=== PATIENT | female | born 1960 | race Caucasian/White ===

== ENCOUNTER 2017-01-12 06:04 | Inpatient (IN) ==
[2017-01-12] MEDS ORDERED: METOPROLOL TARTRATE 5 MG/5 ML VIAL IV ONE (06:15)
[2017-01-12] MEDS ORDERED: NITROGLYCERIN 2% OINT 1 INCH/GM PACK TOP ONE (06:16)
[2017-01-12] MEDS ORDERED: NITROGLYCERIN 2% OINT 1 INCH/GM PACK TOP STA (06:18)
[2017-01-12] MEDS ORDERED: MORPHINE 2 MG/1 ML SYRINGE IV STA (06:19)
[2017-01-12] MEDS ORDERED: ONDANSETRON 4 MG/2 ML VIAL IV STA (06:19)
[2017-01-12] MEDS ORDERED: TIROFIBAN IV ONE (06:24)
[2017-01-12] MEDS ORDERED: TIROFIBAN 5,000 MCG/100 ML PREMIX IV ONE (06:29)
[2017-01-12] MEDS ORDERED: MORPHINE 2 MG/1 ML SYRINGE ONE (06:29)
[2017-01-12] MEDS ORDERED: ONDANSETRON 4 MG/2 ML VIAL ONE (06:29)
[2017-01-12] MEDS ORDERED: NITROGLYCERIN DRIP 50 MG/250 ML BOTTLE IV ONE (06:30)
[2017-01-12] MEDS ORDERED: METOPROLOL TARTRATE 5 MG/5 ML VIAL IV SCH (06:30)
--- NOTE | 2017-01-12 06:34 | Emergency Department Note ---
Jamar Mccormick Brooke, am scribing for, and in the presence of, Jose Bose MD 06:19 . Lidya Mccormick James D, MD, personally performed the services described in this documentation, ascribed by Christine Roldan in my presence, and it is both accurate and complete 630 . Arrival - Arrival Stated Complaint: CHEST PAIN Limitations: No Limitations Source: Patient, EMS, RN Notes Reviewed Time Seen by Provider: 01/12/17 06:12 - History of Present Illness HPI Narrative: Patient is a 56 year old female brought into the ED by EMS with c/o chest pain. Patient says, on Thursday, she started having pain in the lower left arm that was intermittent. She says on Thursday, she woke up nauseated but never could vomit. She even tried to induce vomiting but was never successful. Patient says the left arm pain the went up into the upper arm and into her neck and chest. Patient says she did get diaphoretic and short of breath with the pain. Patient says the pain woke up up, around 0200, this morning. She was given Morphine in ambulance and says her chest pain is better but her left arm still hurts. Patient does not have a history of heart problems or any other known medical problems. Patient quit smoking about 12 years ago. Onset (ago): day(s) (3`) Consistency: intermittent Allergies/Adverse Reactions: Allergies Allergy/AdvReac Type Severity Reaction Status Date / Time codeine Allergy Nausea Verified 01/12/17 06:24 fosphenytoin [From Cerebyx] Allergy ITCHING Verified 01/12/17 06:24 Penicillins Allergy Swelling Verified 01/12/17 06:24 of Lip/Tongue/Throat Review of System - Review of System 12 point system: reviewed and no additional remarkable complaints except as stated - Review of System Constitutional: Present: diaphoresis. Absent: fever Respiratory: Present: other (shortness of breath). Absent: respiratory distress Cardiovascular: Present: chest pain, dyspnea on exertion. Absent: palpitations Gastrointestinal: Present: nausea Musculoskeletal: Present: arm pain (left), neck pain Skin: Absent: rash Exam Vital Signs: Vital Signs Temperature 97.7 F 01/12/17 06:12 Pulse Rate 115 H 01/12/17 06:12 Respiratory Rate 20 01/12/17 06:12 Blood Pressure 203/113 01/12/17 06:12 O2 Sat by Pulse Oximetry 95 01/12/17 06:12 GENERAL: This is a well-nourished well-developed white female in no apparent distress. VITAL SIGNS: Reviewed HEENT: Head is atraumatic and normocephalic. Pupils are equal round react to light. Extraocular movements are intact. Oropharynx is benign with moist mucous membranes. NECK: Neck is soft and supple without tenderness. There are no masses. There is no lymphadenopathy. LUNGS: Lungs are clear to auscultation. Chest rises symmetrically. There is no chest wall tenderness. CV: Heart is rapid rate regular rhythm without murmurs rubs or gallops. ABDOMEN: Abdomen is soft, nontender to palpation. There are no abdominal abnormal masses palpated. There is no organomegaly. Bowel sounds are present and active. SKIN: Skin is warm and dry. No rash. EXTREMITIES: Patient has full range of motion without tenderness. There is no pedal edema. NEUROLOGIC: Awake alert and oriented 4. Cranial nerves II through XII are grossly intact. Motor is 5 over 5 in all extremities bilaterally. Deep tendon reflexes are 2+ and bilaterally equal. Course Course Narrative: Patient was given IV Lopressor, IV Aggrastat, IV nitroglycerin, morphine, and Zofran in the emergency department. Prior to transfer from [facility] she had been given aspirin and Lovenox along with Lopressor. She was not adequately beta blocked from her previous Lopressor dose. Patient was not pain-free upon arrival in the emergency department. She continued to have neck and left arm pain. - Consultations Consultation #1: Discussed with Dr. Caballero. Patient will be taken to the [facility] for PCI. Time: 06:32 Results - Labs Lab Results: I have reviewed the patients labs Labs: Lab performed at [facility] and reviewed by me: Troponin 14.3 Chemistry: Sodium 139, potassium 4.2, chloride 100, CO2 30, BUN 9, creatinine 1.5, glucose 256 CPK 648, MMB 39.3, myoglobin 107, magnesium 1.0 PT 10.0, INR 0.93 - EKG EKG results: interpreted by ERMD - Impressions EKG: Sinus tachycardia with a rate of 121, T-wave inversion in V2 and V3 consistent with anterior septal ischemia, normal axis. - Diagnostic Findings Procedure: Chest x-ray: image reviewed by me (No infiltrates, no pleural effusions per) Critical Care Time Critical Care Time: No Disposition Clinical Impression: Non-ST elevation [place] (NSTEMI), Diabetes mellitus, Essential hypertension Case discussed with: patient Disposition: Still a Patient Condition: Critical Time of Disposition: 06:34
[2017-01-12] MEDS ORDERED: HYDROmorphone 2 MG/1 ML VIAL ONE (06:43)
[2017-01-12] MEDS ORDERED: LIDOCAINE 1% 20 ML VIAL ONE (06:43)
[2017-01-12] MEDS ORDERED: MIDAZOLAM 2 MG/2 ML VIAL ONE (06:43)
[2017-01-12] MEDS: NITROGLYCERIN DRIP 50 MG/250 ML BOTTLE IV SCH (07:05)
[2017-01-12] MEDS: TIROFIBAN 5,000 MCG/100 ML PREMIX IV SCH ×3 (07:05→16:56)
[2017-01-12] MEDS ORDERED: TICAGRELOR 90 MG TABLET ONE (07:25)
--- NOTE | 2017-01-12 07:54 | Cardiac Catheterization ---
Date of Procedure:: 01/12/17 Post-op diagnosis: same Procedure: Procedure performed: 1. Coronary angiography 2. Angioplasty and stenting of mid LAD disease with drug-eluting stent (3.5 x 15 [place]) 3. Right femoral arteriotomy closed with Angio-Seal device Brief clinical summary: Ms. Toribio is a 56-year-old with intermittent chest pains for over 48 hours and continuous chest pain with elevated troponin starting at 2 AM this morning. Description of procedure: After obtaining informed consent, the right groin was prepped and draped in the usual sterile fashion. Next a short 6 [place] sheath was placed in the right femoral artery using a modified Seldinger technique, after the patient received IV sedation and local anesthetic. Next a JL4 catheter was advanced over a guidewire under fluoroscopic guidance, and was engaged to the left coronary artery after which angiography was performed in multiple views. This was then removed over a wire, and a JR4 catheter was advanced in similar fashion, and was engaged to the right coronary artery after which angiography was performed in multiple views. Percutaneous coronary mention was then performed as described below. An angiogram of the sheath showed that it was inserted in the right common femoral artery in a vessel suitable for closure. Hemostasis was obtained with Angio-Seal device with slight continuous "oozing" from the site with golf ball sized hematoma. This was controlled with manual pressure. She had normal pedal pulses at the end the procedure.. The patient was transferred from the supervisor laboratory animal facility in good condition without complication. Percutaneous coronary mention: The patient received aspirin Lovenox and Aggrastat in the emergency room. She had severe hypertension well over 200 mmHg in the ER which came down to 170 here and eventually to the 130s systolic on IV nitroglycerin. I stopped her Aggrastat given her history of "brain bleed " with multiple kathya holes and craniotomy in the past. Advanced and EBU 3.5 guiding catheter which engaged the left coronary artery provided reasonable support. A pro-water wire was advanced to the distal LAD with some difficulty has had taken not to reshape the wire with a larger band. I then advanced a 3.0 x 12 balloon across the area of disease in the dilated to nominal pressures. The balloon was then removed and a 3.5 x 15 [place] stent was advanced crosshair disease and deployed at nominal pressures. The stent appear to be well sized there was a discrete filling defect at the distal edge which may be related to the balloon still being in the stent. I then advanced the balloon several millimeters dilated the distal portion of the lesion for 1 minute at about 4 marivel. There was a good angiographic result with IQRA-3 flow being noted before and after the procedure. Coronary angiography: Left main coronary is normal development free of disease. Left anterior CRE is at least average in caliber wraps around the apex. Gives off a large early diagonal which is the only significantly sized diagonal branch. After the first septal there is a critical 99% area stenosis which is fairly discrete. Otherwise her only moderate irregularities. The circumflex system gives off a ramus branch which is slightly thinner than average in caliber. There is a large than average obtuse marginal branch which is the only branch. The right coronary is a dominant vessel is of average caliber. Gives off an average caliber PDA and posterior lateral. There are at most minimal irregularities. Impression: 1. Right dominant system 2. Single-vessel coronary artery disease with 99% mid LAD stenosis which is discrete 3. Status post angioplasty stenting of mid LAD disease with 3.5 x 15 [place] stent with good results Recommendation discussion: Believe achieved very good result cart distending Ms. Toribio's critical culprit lesion for her non-STEMI with ongoing chest pain. Her chest pain resolved during the procedure. We will watch her closely in the CCU. Sinus tachycardia still noted that heart rate about 110 bpm. We will start her back on her beta- tavo therapy and at high intensity statin. Anesthesia: minimal conscious sedation Surgeon / Physician: Channing Caballero Therapeutic Massage Technician: other Estimated blood loss: minimal Specimens: none sent Condition: stable Disposition: ICU/CCU - Medications / Follow-up
[2017-01-12] MEDS ORDERED: SODIUM CHLORIDE 0.45% 1,000 ML IV SCH (08:00)
--- NOTE | 2017-01-12 08:01 | EKG Report ---
Stationary ECG Study [facility] ER Test Date: 01/12/2017 6:14:20 AM Pat Name: PAT VENEGAS Department: Room: 122 Gender: F Collision Center Manager: : 1960 Requested by: Jose Melo Order Number: [id number] Reading MD: BILL PARKER Intervals [place] Rate: 121 P: 71 VA: 123 QRS: 55 QRSD: 66 T: 91 QT: 387 QTc: 459 Interpretive Statements SINUS TACHYCARDIA at 121 bpm LOW QRS VOLTAGE IN PRECORDIAL LEADS ST DEVIATION AND MARKED T-WAVE ABNORMALITY, CONSIDER ANTEROLATERAL ISCHEMIA Electronically Signed On 01-12-17 15:03:00 CDT by BILL PARKER [email or web address]
--- NOTE | 2017-01-12 08:07 | Cardiology History & Physical ---
Assessment and Plan (1) Non-ST elevation [place] (NSTEMI) Status: Acute Assessment and plan: 1. 56-year-old remote smoker with hypertension, NIDDM, intermittent chest pain for over 48 hours who presented with continuous chest pain since 2 AM with troponin of 14, confirming non-STEMI with ongoing chest pain. 2. History of bowel obstruction with colostomy since about 2010 (Dr. Cabrales) 3. History of craniotomy and bur holes 2 approximately 2013 for "brain bleed" 4. Perform urgent heart catheterization to define her coronary anatomy with intervention as appropriate. I discussed with the patient the risks and benefits of heart catheterization including but not limited to: , stroke, heart attack, vascular damage, reaction to medicine or dye, bleeding requiring blood transfusion, failure of the procedure, and the possible need for planned or emergency surgery. I have answered all the patient's questions regarding the procedure, and the patient is agreeable to proceed. Current Visit: Yes (2) Diabetes mellitus Status: Acute Current Visit: Yes (3) Essential hypertension Status: Acute Current Visit: Yes History of Present Illness Chief complaint: cp History of present illness: Ms. Toribio is a 56 year old female who reports having intermittent episodes of chest pain "off and on" since January 09 lasting up to a couple hours. She had minimal chest discomfort last night when she went to bed. However she woke up at 2 AM with severe crushing chest pain radiating to the left side. She is found to have elevated troponin of 14 in [place], and was transferred here for further care. I was asked to see her urgently with transfer to the [place] Machine [facility] to expedite her intervention. She was still having chest discomfort when I met her in the lab. She still had moderate shortness of breath although both had improved a bit. She reported having bur holes on 2 occasions and craniotomy for "brain bleed" in about 2013. Therefore I stopped her Aggrastat. She denies any previous cardiac history. 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 Allergies Allergy/AdvReac Type Severity Reaction Status Date / Time codeine Allergy Nausea Verified 01/12/17 06:24 fosphenytoin [From Cerebyx] Allergy ITCHING Verified 01/12/17 06:24 Penicillins Allergy Swelling Verified 01/12/17 06:24 of Lip/Tongue/Throat Medical,Surgical,& Family Hx - Medical History Cardio: History of: Hypertension Neurology: History of: Cerebral Hemorrhage Endocrine: History of: Diabetes Mellitus (NIDDM) Gastrointestinal: History of: Bowel Obstruction - Surgical History Abdominal Surgeries: Surgical HX of: Abdominal Surgery (colostomy) - Social History Smoking Status: Never smoker Frequency of Alcohol Use: None Type of Drug Use: None Cardiology Physical Exam - Constitutional Vitals: Vital Signs Temp Pulse Resp BP Pulse Ox 97.7 F 115 H 20 203/113 95 01/12/17 06:12 01/12/17 06:15 01/12/17 06:15 01/12/17 06:12 01/12/17 06:12 Intake and Output 01/11/17 01/12/17 01/12/17 23:59 07:59 15:59 Intake Total 50 / 50 Balance 50 / 50 Intake: IV 50 / 50 AGGRASTAT 5,000 mcg In 50 / 50 100 ml @ 0.15 MCG/KG/MIN 18.37 mls/hr IV .Q5H27M [facility] Rx#:[id number] Other: Weight 106.594 kg Patient Weight 01/12/17 23:59 Weight 106.594 kg General appearance: mild distress, over weight - Head Head exam: Present: normal inspection, normocephalic, atraumatic, other (h/o [place] holes) - Respiratory Respiratory exam: Present: clear to auscultation bilaterally - Cardiovascular Cardiovascular exam: Present: tachycardia. Absent: diastolic murmur, systolic murmur - GI/Abdominal GI/Abdominal exam: Present: soft. Absent: tenderness - Extremities Exam Extremities exam: Present: other (Normal pedal pulses). Absent: edema - Psychiatric Psychiatric exam: Present: anxious Result/EKG - Labs Labs: Laboratory Results - last 24 hr 01/12/17 06:29 Troponin I 13.300 H - EKG EKG results: sinus rhythm
--- NOTE | 2017-01-12 08:31 | EKG Report ---
Stationary ECG Study [facility] Test Date: 01/12/2017 8:28:29 AM Pat Name: PAT VENEGAS Department: Room: 122 Gender: F Patrol Supervisor: Benoit : 1960 Requested by: Channing Hannah Order Number: [id number] Reading MD: VIVI RODRIGUEZ Intervals [place] Rate: 105 P: 62 DE: 160 QRS: 5 QRSD: 75 T: 128 QT: 383 QTc: 444 Interpretive Statements SINUS TACHYCARDIA T WAVE ABNORMALITY, POSSIBLE ANTEROLATERAL ISCHEMIA Electronically Signed On 01-12-17 15:07:23 CDT by VIVI RODRIGUEZ [email or web address]
[2017-01-12] MEDS: CARVEDILOL 3.125 MG TABLET PO SCH ×2 (09:21→21:52)
[2017-01-12] MEDS: ATORVASTATIN 40 MG TABLET PO SCH (09:21)
--- NOTE | 2017-01-12 11:29 | EKG Report ---
Stationary ECG Study [facility] Test Date: 01/12/2017 11:29:18 AM Pat Name: PAT VENEGAS Department: Room: 122 Gender: F Senior Attorney: : 1960 Requested by: Channing Hannah Order Number: [id number] Reading MD: VIVI RODRIGUEZ Intervals [place] Rate: 101 P: 55 ID: [id number] QRS: 17 QRSD: 78 T: 125 QT: 387 QTc: 445 Interpretive Statements SINUS TACHYCARDIA LOW QRS VOLTAGE IN PRECORDIAL LEADS MARKED T-WAVE ABNORMALITY, CONSIDER ANTEROLATERAL ISCHEMIA Electronically Signed On 01-12-17 15:09:25 CDT by VIVI RODRIGUEZ [email or web address]
[2017-01-12] MEDS: INSULIN REGULAR 100 UNIT/ML SUBCUT SCH ×3 (12:11→21:51)
--- NOTE | 2017-01-12 14:48 | EKG Report ---
Stationary ECG Study [facility] Test Date: 01/12/2017 2:49:06 PM Pat Name: PAT VENEGAS Department: Room: 122 Gender: F Sheet Layer: CRISPIN : 1960 Requested by: Channing Hannah Order Number: [id number] Reading MD: VIVI RODRIGUEZ Intervals [place] Rate: 99 P: 43 [place]: 128 QRS: 21 QRSD: 82 T: 143 QT: 397 QTc: 453 Interpretive Statements SINUS RHYTHM LOW QRS VOLTAGE IN PRECORDIAL LEADS ST DEVIATION AND MARKED T-WAVE ABNORMALITY, CONSIDER ANTEROLATERAL ISCHEMIA Electronically Signed On 01-12-17 15:11:49 CDT by VIVI RODRIGUEZ [id number]
[2017-01-12] MEDS ORDERED: GLUCAGON 1 MG VIAL IM PRN (15:56)
[2017-01-12] MEDS ORDERED: DEXTROSE 50% 25 GM/50 ML SYRINGE IV PRN (15:56)
[2017-01-12] MEDS: traMADol 50 MG TABLET PO SCH ×2 (16:51→21:52)
[2017-01-12] MEDS ORDERED: traMADol 50 MG TABLET PO SCH (17:00)
[2017-01-12] MEDS: TICAGRELOR 90 MG TABLET PO SCH (21:52)
[2017-01-13 05:33] LABS: Basophils % 0.3 % (0.0-0.8); Eosinophils # 0.1 10*3/uL (0.0-0.87); Eosinophils % 1.3 % (0.00-10.9); Hematocrit 35.9 VOL% (35.7-47.0); Immature Granulocytes % 0.6 %; Immature Granulocytes Absolute 0.04 #; Lymphocytes # 1.6 10*3/uL (1.4-4.0); Lymphocytes % 22.7 % (21.3-54.2); Mean Corpuscular HGB Conc 33.4 GM/DL (32-36); Mean Corpuscular Hemoglobin 27 PG (27-34); Mean Corpuscular Volume 81.4 FL (87-102); Mean Platelet Volume 10.9 FL (9.6-12.0); Monocytes # 0.7 10*3/uL (0.11-0.8); Monocytes % 9.8 % (1.7-12.7); Neutrophils # 4.6 10*3/uL (1.4-7.4); Neutrophils % 65.3 % (38.7-73.9); Platelet Count 218 T/CUMM (130-400); Red Blood Count 4.41 MC/CUMM (3.8-5.5); Red Cell Distribution Width 14.4 % (9.3-17.3)
[2017-01-13] MEDS: NITROGLYCERIN DRIP 50 MG/250 ML BOTTLE IV SCH (06:04)
[2017-01-13 06:07] LABS: Blood Urea Nitrogen 8 MG/DL (7-18); Calcium 8.4 MG/DL (8.5-10.1); Glucose 178 MG/DL (74-106); Osmolality,Calculated 271.1 MOS/KG (273-304); Potassium 3.5 MMOL/L (3.5-5.1); Sodium 135 MMOL/L (136-145)
--- NOTE | 2017-01-13 07:15 | EKG Report ---
Stationary ECG Study [facility] Test Date: 01/13/2017 7:15:39 AM Pat Name: PAT VENEGAS Department: Room: 122 Gender: F Collections Attorney: MARISOL : 1960 Requested by: Channing Hannah Order Number: [id number] Reading MD: VIVI RODRIGUEZ Intervals [place] Rate: 103 P: 70 [place]: 138 QRS: 63 QRSD: 76 T: 101 QT: 363 QTc: 423 Interpretive Statements SINUS TACHYCARDIA LOW QRS VOLTAGE IN PRECORDIAL LEADS MODERATE T-WAVE ABNORMALITY, CONSIDER ANTERIOR ISCHEMIA Electronically Signed On 01-13-17 09:36:58 CDT by VIVI RODRIGUEZ [email or web address]
[2017-01-13] MEDS: INSULIN REGULAR 100 UNIT/ML SUBCUT SCH ×4 (08:05→21:52)
[2017-01-13] MEDS: traMADol 50 MG TABLET PO SCH ×2 (08:06→20:53)
[2017-01-13] MEDS: ATORVASTATIN 40 MG TABLET PO SCH (08:06)
[2017-01-13] MEDS: TICAGRELOR 90 MG TABLET PO SCH ×2 (08:07→20:52)
[2017-01-13] MEDS: ASPIRIN CHEW 81 MG TABLET PO SCH (08:07)
[2017-01-13] MEDS: CARVEDILOL 6.25 MG TABLET PO SCH ×2 (08:07→20:52)
[2017-01-13] MEDS: LISINOPRIL 5 MG TABLET PO SCH ×2 (08:08→20:52)
--- NOTE | 2017-01-13 11:22 | Cardiology Progress Note ---
Dudley Mccormick April, RN, am scribing for, and in the presence of, Channing Caballero MD 11:22. Assessment and Plan - Time spent with patient Time spent with patient: Greater than 30 minutes (1) Non-ST elevation [place] (NSTEMI) Status: Acute Assessment and plan: I have examined and interviewed Ms. Toribio. I agree with above went add the following: Initial assessment and plan January 12, 2017: 1. 56-year-old remote smoker with hypertension, NIDDM, intermittent chest pain for over 48 hours who presented with continuous chest pain since 2 AM with troponin of 14, confirming non-STEMI with ongoing chest pain. 2. History of bowel obstruction with colostomy since about 2010 (Dr. Cabrales) 3. History of craniotomy and bur holes 2 approximately 2013 for "brain bleed" 4. Perform urgent heart catheterization to define her coronary anatomy with intervention as appropriate. Assessment and plan January 13, 2017: 1. Status post non-STEMI doing reasonably well clinically but still with some mild sinus tachycardia 2. Increase Coreg to 6.25 g twice daily and add low-dose lisinopril 5 g twice daily 3. Echocardiogram is pending 4. Transfer to telemetry Current Visit: Yes (2) Essential hypertension Status: Chronic Current Visit: Yes (3) Diabetes mellitus Status: Chronic Current Visit: Yes Cardiology - PN: Subj Interval history: Handcrew Foreman: New to Dr. Caballero PCP: Ruth Redman Summary: Ms. Toribio is a 56 year old female who reports having intermittent episodes of chest pain "off and on" since January 09 lasting up to a couple hours. She had minimal chest discomfort January 11 when she went to bed. However she woke up at 2 AM with severe crushing chest pain radiating to the left side. She is found to have elevated troponin of 14 in [facility], and was transferred to [facility] for further care. I was asked to see her urgently with transfer to the Financial Advisor Trainee to expedite her intervention. She was still having chest discomfort when I met her in the lab. She still had moderate shortness of breath although both had improved a bit. She reported having bur holes on 2 occasions and craniotomy for "brain bleed" in about 2013. Therefore I stopped her Aggrastat. She denies any previous cardiac history. 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 She underwent heart catheterization January 12 with the following findings: Impression: 1. Right dominant system 2. Single-vessel coronary artery disease with 99% mid LAD stenosis which is discrete 3. Status post angioplasty stenting of mid LAD disease with 3.5 x 15 [place] stent with good results January 13, 2017: Ms. Toribio is seen today in the cardiac care unit. She denies any chest pain this morning, but states she does have some tenderness in her chest area. She reports this morning she was short of breath, they have placed her on oxygen via nasal cannula and this is improved. O2 sat is currently 99%. She reports she has been up to the bathroom without difficulty. Right groin cath access site is soft and without evidence of bleeding or hematoma, no bruit detected. Her creatinine post cath is stable at 1.10. Her troponin has trended down some to 8.[address] currently shows sinus tachycardia with heart rate of 106. Current blood pressure 142/90. Lisinopril 5 mg twice daily has been added to her medical regimen. She is also on beta-tavo, statin, baby aspirin. She has been started on Brilinta 90 mg twice daily. We have discussed the importance of taking this medication without fail. Exam (Progress Note) - Constitutional Vitals: Period Temp Pulse Resp BP Sys/Lilly Pulse Ox Last 24 Hr 96.9 F-97.5 F 87-122 11-26 112-171/60-115 91-99 General appearance: no acute distress, over weight - Head Head exam: Present: other (History of [place] holes). Absent: abrasion, hematoma - Eye Eye exam: Absent: periorbital swelling, laceration to eyelids - Respiratory Respiratory exam: Present: clear to auscultation bilaterally, other (Oxygen in use via nasal cannula). Absent: accessory muscle use, chest wall tenderness - Cardiovascular Cardiovascular exam: Present: regular rate and rhythm, tachycardia. Absent: diastolic murmur, systolic murmur - GI/Abdominal GI/Abdominal exam: Present: normal bowel sounds, soft, other (Colostomy). Absent: distended, tenderness - Extremities Exam Extremities exam: Present: other (Right groin soft and without evidence of bleeding or hematoma). Absent: calf tenderness, edema - Neurological Exam Neurological exam: Present: alert, oriented X3 - Psychiatric Psychiatric exam: Present: normal affect, normal mood - Skin Skin exam: Present: warm, dry Result/EKG - Labs CBC & BMP: 01/13/17 05:07 01/13/17 05:07 Lab Results: I have reviewed the past 24 hour labs Labs: Laboratory Results - last 24 hr 01/12/17 01/12/17 01/12/17 10:57 11:13 13:57 WBC RBC Hgb Hct MCV MCH MCHC RDW Plt Count MPV Neut % (Auto) Lymph % (Auto) [place] % (Auto) Eos % (Auto) Baso % (Auto) Neut # (Auto) Lymph # (Auto) [place] # (Auto) Eos # (Auto) Baso # (Auto) Immature Gran % Nucleated RBC % Immature Gran # Nucleated RBCs # Immature Plt Fraction Sodium Potassium Chloride Carbon Dioxide Anion Gap BUN Creatinine GFR Calculation BUN/Creatinine Ratio Glucose POC Glucose 277 H Calculated Osmolality Calcium Total Creatine Kinase CK-MB (CK-2) Troponin I 11.800 H 8.040 H D 01/12/17 01/12/17 01/13/17 16:19 21:20 05:07 WBC 7.0 RBC 4.41 Hgb 12.0 Hct 35.9 MCV 81.4 L MCH 27 MCHC 33.4 RDW 14.4 Plt Count 218 MPV 10.9 Neut % (Auto) 65.3 Lymph % (Auto) 22.7 Polk % (Auto) 9.8 Eos % (Auto) 1.3 Baso % (Auto) 0.3 Neut # (Auto) 4.6 Lymph # (Auto) 1.6 Polk # (Auto) 0.7 Eos # (Auto) 0.1 Baso # (Auto) 0.0 Immature Gran % 0.6 Nucleated RBC % 0.0 Immature Gran # 0.04 Nucleated RBCs # 0.00 Immature Plt Fraction 0.0 Sodium Potassium Chloride Carbon Dioxide Anion Gap BUN Creatinine GFR Calculation BUN/Creatinine Ratio Glucose POC Glucose 249 H 251 H Calculated Osmolality Calcium Total Creatine Kinase CK-MB (CK-2) Troponin I 01/13/17 01/13/17 05:07 07:21 WBC RBC Hgb Hct MCV MCH MCHC RDW Plt Count MPV Neut % (Auto) Lymph % (Auto) [place] % (Auto) Eos % (Auto) Baso % (Auto) Neut # (Auto) Lymph # (Auto) [place]k # (Auto) Eos # (Auto) Baso # (Auto) Immature Gran % Nucleated RBC % Immature Gran # Nucleated RBCs # Immature Plt Fraction Sodium 135 L Potassium 3.5 Chloride 99 Carbon Dioxide 30 Anion Gap 9.5 BUN 8 Creatinine 1.10 H GFR Calculation 70 BUN/Creatinine Ratio 7.00 Glucose 178 H POC Glucose 226 H Calculated Osmolality 271.1 L Calcium 8.4 L Total Creatine Kinase 174 CK-MB (CK-2) 4.3 H Troponin I 8.990 H - EKG EKG results: interpreted by me EKG shows: tachycardia, sinus rhythm Specialty Discharge - Follow Up or Referrals Federico Mccormick Randall Scott, MD, personally performed the services described in this documentation, ascribed by Joan Buckner RN in my presence, and it is both accurate and complete .
[2017-01-14 05:28] LABS: Basophils % 0.4 % (0.0-0.8); Eosinophils # 0.2 10*3/uL (0.0-0.87); Eosinophils % 2.4 % (0.00-10.9); Hematocrit 34.4 VOL% (35.7-47.0); Hemoglobin 11.2 GM/DL (12.0-16.0); Immature Granulocytes % 0.8 %; Immature Granulocytes Absolute 0.06 #; Lymphocytes # 1.8 10*3/uL (1.4-4.0); Lymphocytes % 25.4 % (21.3-54.2); Mean Corpuscular HGB Conc 32.6 GM/DL (32-36); Mean Corpuscular Hemoglobin 27 PG (27-34); Mean Corpuscular Volume 82.1 FL (87-102); Mean Platelet Volume 11.1 FL (9.6-12.0); Monocytes # 0.5 10*3/uL (0.11-0.8); Monocytes % 7.4 % (1.7-12.7); Neutrophils # 4.6 10*3/uL (1.4-7.4); Neutrophils % 63.6 % (38.7-73.9); Platelet Count 241 T/CUMM (130-400); Red Blood Count 4.19 MC/CUMM (3.8-5.5); Red Cell Distribution Width 14.7 % (9.3-17.3); White Blood Count 7.2 T/CUMM (4-12)
[2017-01-14 06:20] LABS: Calcium 8.5 MG/DL (8.5-10.1); Magnesium 1.6 MG/DL (1.8-2.4); Potassium 3.8 MMOL/L (3.5-5.1)
[2017-01-14 06:21] LABS: Troponin I Only 7.22 NG/ML (0.00-0.045)
[2017-01-14] MEDS: INSULIN REGULAR 100 UNIT/ML SUBCUT SCH ×4 (08:26→21:21)
[2017-01-14] MEDS: CARVEDILOL 6.25 MG TABLET PO SCH ×2 (08:28→21:23)
[2017-01-14] MEDS: TICAGRELOR 90 MG TABLET PO SCH (08:28)
[2017-01-14] MEDS: ASPIRIN CHEW 81 MG TABLET PO SCH (08:28)
[2017-01-14] MEDS: ATORVASTATIN 40 MG TABLET PO SCH (08:28)
[2017-01-14] MEDS: LISINOPRIL 5 MG TABLET PO SCH ×2 (08:28→21:23)
[2017-01-14] MEDS: traMADol 50 MG TABLET PO SCH ×2 (08:29→21:23)
--- NOTE | 2017-01-14 10:08 | EKG Report ---
Stationary ECG Study [facility] Test Date: 01/14/2017 10:08:19 AM Pat Name: PAT VENEGAS Department: Room: 281 Gender: F Shuttle Car Operator: : 1960 Requested by: Channing Hannah Order Number: [id number] Reading MD: VIVI RODRIGUEZ Intervals [place] Rate: 94 P: 55 [place]: 146 QRS: 26 QRSD: 79 T: 127 QT: 407 QTc: 458 Interpretive Statements SINUS RHYTHM MODERATE T-WAVE ABNORMALITY, CONSIDER LATERAL ISCHEMIA Electronically Signed On 01-14-17 13:14:40 CDT by VIVI RODRIGUEZ [email or web address]
--- NOTE | 2017-01-14 10:33 | ECHO Report ---
Josi Toribio Exam Date: 01/13/2017 08:38 Referring Physician: Technologist: Rafaela Oh RDCS Age: 56 Ht (in): 67 Wt (lb): 229 Gender: F Exam Location: [facility] Echo Indications: Non-ST elevation (NSTEMI) myocardial infarction, Chest pain, unspecified, Essential (primary) hypertension, NIDDM, Elevated troponin, Shortness of breath BP: 151 / 86 HR: 101 Rhythm: Sinus Technical Quality: IMPRESSIONS Normal chamber sizes 1+ concentric LVH Borderline reduced LV systolic function with ejection fraction estimated 50% with modest anteroapical hypokinesis Normal RV systolic function Trace tricuspid regurgitation with RVSP 24 mmHg plus RAP MEASUREMENTS (Male / Female) Normal Values 2D ECHO LV Diastolic Diameter PLAX 4.7 cm 4.2 - 5.9 / 3.9 - 5.3 cm LV Systolic Diameter PLAX 3.3 cm LV Fractional Shortening PLAX 29.1 % IVS Diastolic Thickness 1.0 cm 0.6 - 1.0 / 0.6 - 0.9 cm LVPW Diastolic Thickness 1.0 cm 0.6 - 1.0 / 0.6 - 0.9 cm RV Internal Dim ED PLAX 2.9 cm Aortic Root Diameter 2.8 cm LA Systolic Diameter LX 3.4 cm 3.0 - 4.0 / 2.7 - 3.8 cm DOPPLER TR Peak Velocity 247.0 cm/s TR Peak Gradient 24.4 mmHg FINDINGS Left Ventricle Normal left ventricular cavity size. Mild left ventricular hypertrophy. Left ventricular ejection fraction is estimated Right Ventricle The right ventricle is normal in size and function. Right Atrium The right atrium is normal in size. Left Atrium The left atrium is normal in size. Mitral Valve Morphologically normal mitral valve without significant stenosis or prolapse. There is no mitral regurgitation. Aortic Valve Morphologically normal aortic valve without significant sclerosis or stenosis. There is no aortic regurgitation. Tricuspid Valve Morphologically normal tricuspid valve. Trace to mild tricuspid valve regurgitation. Tricuspid regurgitation velocities suggest a PAP of 34 mmHg. Pulmonic Valve Morphologically normal pulmonic valve without significant stenosis. There is no pulmonic regurgitation. Pericardium Normal pericardium without effusion. Aorta Normal ascending aorta dimension. Channing Caballero (Electronically Signed) Final Date: 14 January 2017 10:32
[2017-01-14] MEDS ORDERED: CLOPIDOGREL 300 MG TABLET PO ONE (13:19)
--- NOTE | 2017-01-14 13:24 | Cardiology Progress Note ---
Dudley Mccormick April RN, am scribing for, and in the presence of, Channing Caballero MD 13:24. Assessment and Plan (1) Non-ST elevation GA (NSTEMI) Status: Acute Assessment and plan: Initial assessment and plan January 12, 2017: 1. 56-year-old remote smoker with hypertension, NIDDM, intermittent chest pain for over 48 hours who presented with continuous chest pain since 2 AM with troponin of 14, confirming non-STEMI with ongoing chest pain. 2. History of bowel obstruction with colostomy since about 2010 (Dr. Cabrales) 3. History of craniotomy and bur holes 2 approximately 2013 for "brain bleed" 4. Perform urgent heart catheterization to define her coronary anatomy with intervention as appropriate. Assessment and plan January 13, 2017: 1. Status post non-STEMI doing reasonably well clinically but still with some mild sinus tachycardia 2. Increase Coreg to 6.25 g twice daily and add low-dose lisinopril 5 g twice daily 3. Echocardiogram is pending 4. Transfer to telemetry Assessment and plan January 14, 2017: 1. Hemodynamically stable status post non-STEMI with discrete critical mid LAD lesion stented with drug-eluting stent 2. Creatinine is stable, continue low-dose JENNIFER inhibitor 3. NIDDM, resume metformin in the morning 4. Dyspnea with walking to the bathroom and some shoulder pain. Change Brilinta to Plavix 300 now and then 75 g per day 5. Her right groin access site looks good 6. Plan for discharge tomorrow if there are no setbacks and she is able to ambulate well. Current Visit: Yes (2) Essential hypertension Status: Chronic Current Visit: Yes (3) Diabetes mellitus Status: Chronic Current Visit: Yes Cardiology - PN: Subj Interval history: Design Editor: New to Dr. Caballero PCP: Ruth Redman Summary: Ms. Toribio is a 56 year old female who reports having intermittent episodes of chest pain "off and on" since January 09 lasting up to a couple hours. She had minimal chest discomfort January 11 when she went to bed. However she woke up at 2 AM with severe crushing chest pain radiating to the left side. She is found to have elevated troponin of 14 in [facility], and was transferred to [facility] for further care. I was asked to see her urgently with transfer to the Tetryl Wringer Operator to expedite her intervention. She was still having chest discomfort when I met her in the lab. She still had moderate shortness of breath although both had improved a bit. She reported having bur holes on 2 occasions and craniotomy for "brain bleed" in about 2013. Therefore I stopped her Aggrastat. She denies any previous cardiac history. 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 She underwent heart catheterization January 12 with the following findings: Impression: 1. Right dominant system 2. Single-vessel coronary artery disease with 99% mid LAD stenosis which is discrete 3. Status post angioplasty stenting of mid LAD disease with 3.5 x 15 [place] stent with good results January 13, 2017: Ms. Toribio is seen today in the cardiac care unit. She denies any chest pain this morning, but states she does have some tenderness in her chest area. She reports this morning she was short of breath, they have placed her on oxygen via nasal cannula and this is improved. O2 sat is currently 99%. She reports she has been up to the bathroom without difficulty. Right groin cath access site is soft and without evidence of bleeding or hematoma, no bruit detected. Her creatinine post cath is stable at 1.10. Her troponin has trended down some to 8.990 this morning. recording artist currently shows sinus tachycardia with heart rate of 106. Current blood pressure 142/90. Lisinopril 5 mg twice daily has been added to her medical regimen. She is also on beta-tavo, statin, baby aspirin. She has been started on Brilinta 90 mg twice daily. We have discussed the importance of taking this medication without fail. January 14, 2017: Ms. Toribio is seen today in the telemetry unit. She reports this morning after getting up to go the bathroom she did experience some shortness of breath and some left shoulder pain. She is back in bed now and shortness of breath has subsided. She continues to have a left shoulder pain, but it has lessened. She describes it as similar pain to what she had apply admission, but that it is not as severe as it was then. We will get an EKG this morning. Her troponin has continued to trend down, this morning it is 7.220. Both her blood pressure and heart rates have improved overnight. recording artist currently shows sinus rhythm with heart rates in the 80s. Magnesium is 1.6 this morning. Exam (Progress Note) - Constitutional Vitals: Period Temp Pulse Resp BP Sys/Lilly Pulse Ox Last 24 Hr 96.7 F-98.2 F 87-103 15-20 106-162/63-90 91-98 General appearance: no acute distress, over weight Exam: General appearance: no acute distress, over weight - Head Head exam: Present: other (History of Domingo holes). Absent: abrasion, hematoma - Eye Eye exam: Absent: periorbital swelling, laceration to eyelids - Respiratory Respiratory exam: Present: clear to auscultation bilaterally, other (Oxygen in use via nasal cannula). Absent: accessory muscle use, chest wall tenderness - Cardiovascular Cardiovascular exam: Present: regular rate and rhythm, tachycardia. Absent: diastolic murmur, systolic murmur - GI/Abdominal GI/Abdominal exam: Present: normal bowel sounds, soft, other (Colostomy). Absent: distended, tenderness - Extremities Exam Extremities exam: Present: other (Right groin soft and without evidence of bleeding or hematoma). Absent: calf tenderness, edema - Neurological Exam Neurological exam: Present: alert, oriented X3 - Psychiatric Psychiatric exam: Present: normal affect, normal mood - Skin Skin exam: Present: warm, dry - Head Head exam: Present: normal inspection, normocephalic, atraumatic - Neck Neck exam: Present: normal inspection - Respiratory Respiratory exam: Absent: rhonchi, stridor, wheezes - Cardiovascular Cardiovascular exam: Present: regular rate and rhythm. Absent: diastolic murmur , rubs - GI/Abdominal GI/Abdominal exam: Present: soft. Absent: tenderness - Extremities Exam Extremities exam: Present: other. Absent: edema - Neurological Exam Neurological exam: Present: alert, oriented X3 Result/EKG - Labs CBC & BMP: 01/14/17 05:17 01/14/17 05:17 Lab Results: I have reviewed the past 24 hour labs Labs: Laboratory Results - last 24 hr 01/13/17 01/13/17 01/13/17 11:18 17:03 20:50 WBC RBC Hgb Hct MCV MCH MCHC RDW Plt Count MPV Neut % (Auto) Lymph % (Auto) [place] % (Auto) Eos % (Auto) Baso % (Auto) Neut # (Auto) Lymph # (Auto) [place] # (Auto) Eos # (Auto) Baso # (Auto) Immature Gran % Nucleated RBC % Immature Gran # Nucleated RBCs # Immature Plt Fraction Sodium Potassium Chloride Carbon Dioxide Anion Gap BUN Creatinine GFR Calculation BUN/Creatinine Ratio Glucose POC Glucose 302 H 215 H 190 H Calculated Osmolality Calcium Magnesium Troponin I 01/14/17 01/14/17 01/14/17 05:17 05:17 07:32 WBC 7.2 RBC 4.19 Hgb 11.2 L Hct 34.4 L MCV 82.1 L MCH 27 MCHC 32.6 RDW 14.7 Plt Count 241 MPV 11.1 Neut % (Auto) 63.6 Lymph % (Auto) 25.4 [place] % (Auto) 7.4 Eos % (Auto) 2.4 Baso % (Auto) 0.4 Neut # (Auto) 4.6 Lymph # (Auto) 1.8 [place] # (Auto) 0.5 Eos # (Auto) 0.2 Baso # (Auto) 0.0 Immature Gran % 0.8 Nucleated RBC % 0.0 Immature Gran # 0.06 Nucleated RBCs # 0.00 Immature Plt Fraction 0.0 Sodium 136 Potassium 3.8 Chloride 100 Carbon Dioxide 28 Anion Gap 11.8 BUN 10 Creatinine 1.20 H GFR Calculation 63 BUN/Creatinine Ratio 8.00 Glucose 192 H POC Glucose 168 H Calculated Osmolality 275.0 Calcium 8.5 Magnesium 1.6 L Troponin I 7.220 H - EKG EKG results: interpreted by me EKG shows: sinus rhythm Specialty Discharge - Follow Up or Referrals Federico Mccormick Randall Scott, MD, personally performed the services described in this documentation, ascribed by Joan Buckner RN in my presence, and it is both accurate and complete 324 .
[2017-01-14] MEDS: busPIRone 15 MG TABLET PO SCH ×2 (14:22→21:23)
[2017-01-15 05:27] LABS: Basophils % 0.4 % (0.0-0.8); Eosinophils # 0.3 10*3/uL (0.0-0.87); Eosinophils % 3.9 % (0.00-10.9); Hematocrit 34.1 VOL% (35.7-47.0); Immature Granulocytes % 0.5 %; Immature Granulocytes Absolute 0.04 #; Lymphocytes # 1.8 10*3/uL (1.4-4.0); Mean Corpuscular HGB Conc 32.3 GM/DL (32-36); Mean Corpuscular Hemoglobin 27 PG (27-34); Mean Corpuscular Volume 82.6 FL (87-102); Mean Platelet Volume 11.4 FL (9.6-12.0); Monocytes # 0.5 10*3/uL (0.11-0.8); Monocytes % 7.3 % (1.7-12.7); Neutrophils # 4.6 10*3/uL (1.4-7.4); Neutrophils % 62.9 % (38.7-73.9); Platelet Count 278 T/CUMM (130-400); Red Blood Count 4.13 MC/CUMM (3.8-5.5); Red Cell Distribution Width 14.7 % (9.3-17.3); White Blood Count 7.4 T/CUMM (4-12)
[2017-01-15 05:50] LABS: Calcium 8.7 MG/DL (8.5-10.1); Magnesium 1.7 MG/DL (1.8-2.4); Osmolality,Calculated 277.8 MOS/KG (273-304); Potassium 4.2 MMOL/L (3.5-5.1)
[2017-01-15] MEDS ORDERED: CLOPIDOGREL 75 MG TABLET PO SCH (09:00)
[2017-01-15] MEDS: INSULIN REGULAR 100 UNIT/ML SUBCUT SCH ×2 (09:10→12:39)
[2017-01-15] MEDS: ATORVASTATIN 40 MG TABLET PO SCH (09:13)
[2017-01-15] MEDS: ASPIRIN CHEW 81 MG TABLET PO SCH (09:13)
[2017-01-15] MEDS: CARVEDILOL 6.25 MG TABLET PO SCH (09:13)
[2017-01-15] MEDS: LISINOPRIL 5 MG TABLET PO SCH (09:14)
[2017-01-15] MEDS: traMADol 50 MG TABLET PO SCH (09:14)
[2017-01-15] MEDS: busPIRone 15 MG TABLET PO SCH ×2 (09:14→14:32)
[2017-01-15 12:06] VITALS: BP 111/56
[2017-01-15] MEDS ORDERED: DULoxetine 30 MG CAPSULE PO SCH (13:20)
--- NOTE | 2017-01-15 14:34 | Discharge Summary ---
Dudley Mccormick April, RN, am scribing for, and in the presence of, Kristin Thornton NP 13:17. <Kristin Thornton - Last Filed: 01/15/17 14:34> Hospital Course - Hospital Course Hospital Course: Hris Developer: Brown to Dr. Caballero PCP: Ruth Redman Summary: Ms. Toribio is a 56 year old female who reports having intermittent episodes of chest pain "off and on" since January 09 lasting up to a couple hours. She had minimal chest discomfort January 11 when she went to bed. However she woke up at 2 AM with severe crushing chest pain radiating to the left side. She is found to have elevated troponin of 14 in [facility], and was transferred to [facility] for further care. I was asked to see her urgently with transfer to the Cook Supervisor to expedite her intervention. She was still having chest discomfort when I met her in the lab. She still had moderate shortness of breath although both had improved a bit. She reported having bur holes on 2 occasions and craniotomy for "brain bleed" in about 2013. Therefore I stopped her Aggrastat. She denies any previous cardiac history. 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 She underwent heart catheterization January 12 with the following findings: Impression: 1. Right dominant system 2. Single-vessel coronary artery disease with 99% mid LAD stenosis which is discrete 3. Status post angioplasty stenting of mid LAD disease with 3.5 x 15 [place] stent with good results Lisinopril 5 mg twice daily, Lipitor 80 mg daily, and baby aspirin have been added to her medical regimen. She was initially started on Brilinta, but yesterday she had some shoulder discomfort and shortness of breath while in the bathroom. This has been changed to Plavix. She was given a 300 mg bolus and is now on 75 mg daily. This morning she is seen resting in bed in no acute distress. She denies any further chest or shoulder pain. She also denies any shortness of breath. She reports she has been up ambulating around the room. Right groin cath access site is soft and without evidence of bleeding or hematoma. It is she has met maximum benefit from hospitalization will be discharged home. She will be discharged home on the following medicines: BuSpar 15 mg 3 times daily Metformin 1000 mg daily Mobic 15 mg as needed Cymbalta 30 mg daily Carvedilol 12.5 mg twice daily Lisinopril 5 mg twice daily Lipitor 80 mg daily Aspirin 81 mg daily Plavix 75 mg daily It has been discussed with patient the importance of taking the Plavix without fail. Her creatinine is elevated from 1.1-1.3. We will have this rechecked at follow-up appointment. We will schedule appointment to see Kamaljit Crowell NP 1-2 weeks with labs [address] Caballero will be out this time. We will schedule appointment with Dr. Caballero in 4-6 weeks. She has an appointment to see her primary doctor for refill on her noncardiac medications the day that she was admitted to the hospital. She asked that we call in a month supply of these. We will call in a month supply with no refills. She will see her primary doctor within that time for further refills. - Time spent with patient Time with patient DS: Greater than 30 minutes Diagnosis - Discharge Diagnosis (1) Non-ST elevation [place] (NSTEMI) Status: Resolved (2) Essential hypertension Status: Chronic (3) Diabetes mellitus Status: Chronic (4) CAD (coronary artery disease) Status: Chronic Specialty Discharge - Follow Up or Referrals Follow up with: Kamaljit Crowell CFNP [Advanced Practice Nurse] - (1-2 weeks with EKG BMP mag and CBC) Channing Caballero MD [Primary Care Provider] - (4-6 weeks) Discharge Plan - Discharge Data Disposition: Disch To Home/Self Care Condition at Discharge: Stable Discharge Diet: diabetic diet, heart healthy Activity: other (Post cath expectations) Hygiene: other (Post cath expectations) Weight Bearing at Discharge: other (Post cath expectations) Driving: other (Post cath expectations) Contact your physician if you experience:: fever over 101, Difficulty voiding, Redness or swelling, Nausea/Vomiting, Shortness of breath, Bleeding, pain uncontrolled by pain medications - Discharge Medications New RX: Aspirin Chew Tab 81 mg PO DAILY tablet RX: Clopidogrel [Plavix] 75 mg PO DAILY #30 tablet RX: Lisinopril [Prinivil] 5 mg PO BID #60 tablet RX: metFORMIN XR [Glucophage Xr] 1,000 mg PO DAILY W/BREAKFAST #30 tablet RX: Atorvastatin [Lipitor] 80 mg PO DAILY #30 tablet Continue RX: Carvedilol [Coreg] 12.5 mg PO BID #60 RX: busPIRone [Buspar] 15 mg PO TID #90 RX: DULoxetine [Cymbalta] 30 mg PO DAILY #30 No Action Metformin HCl [Metformin HCl ER] 1,000 mg PO DAILY Meloxicam [Mobic] 15 mg PO DAILY PRN PRN Reason: Muscle Pain - Follow Up or Referral Follow Up: Kamaljit Crowell CFNP [Advanced Practice Nurse] - (1-2 weeks with EKG BMP mag and CBC) Channing Caballero MD [Primary Care Provider] - (4-6 weeks) - Forms/Instructions Instructions: Myocardial Infarction (GEN), Left Heart Catheterization (DC), Heart Healthy Diet (GEN), Coronary Intravascular Stent Placement (DC), Coronary Intravascular Stent Placement, Jack Spooler Tender (GEN) Exam - Constitutional Vitals: Period Temp Pulse Resp BP Sys/Lilly Pulse Ox Last 24 Hr 96.5 F-98 F 76-98 20-20 108-143/56-89 92-98 Exam: General appearance: no acute distress, over weight - Head Head exam: Present: other (History of Domingo holes). Absent: abrasion, hematoma - Eye Eye exam: Absent: periorbital swelling, laceration to eyelids - Respiratory Respiratory exam: Present: clear to auscultation bilaterally, other (Oxygen in use via nasal cannula). Absent: accessory muscle use, chest wall tenderness - Cardiovascular Cardiovascular exam: Present: regular rate and rhythm, tachycardia. Absent: diastolic murmur, systolic murmur - GI/Abdominal GI/Abdominal exam: Present: normal bowel sounds, soft, other (Colostomy). Absent: distended, tenderness - Extremities Exam Extremities exam: Present: other (Right groin soft and without evidence of bleeding or hematoma). Absent: calf tenderness, edema - Neurological Exam Neurological exam: Present: alert, oriented X3 - Psychiatric Psychiatric exam: Present: normal affect, normal mood - Skin Skin exam: Present: warm, dry Discharge Results Labs on day of discharge: Labs from last 24 hours 01/15/17 01/15/17 01/15/17 11:39 07:17 04:46 WBC RBC Hgb Hct MCV MCH MCHC RDW Plt Count MPV Neut % (Auto) Lymph % (Auto) [place] % (Auto) Eos % (Auto) Baso % (Auto) Neut # (Auto) Lymph # (Auto) [place] # (Auto) Eos # (Auto) Baso # (Auto) Immature Gran % Nucleated RBC % Immature Gran # Nucleated RBCs # Immature Plt Fraction Sodium 137 Potassium 4.2 Chloride 100 Carbon Dioxide 29 Anion Gap 12.2 BUN 12 Creatinine 1.30 H GFR Calculation 57 BUN/Creatinine Ratio 9.00 Glucose 188 H POC Glucose 270 H 222 H Calculated Osmolality 277.8 Calcium 8.7 Magnesium 1.7 L 01/15/17 01/14/17 01/14/17 04:46 19:20 15:19 WBC 7.4 RBC 4.13 Hgb 11.0 L Hct 34.1 L MCV 82.6 L MCH 27 MCHC 32.3 RDW 14.7 Plt Count 278 MPV 11.4 Neut % (Auto) 62.9 Lymph % (Auto) 25.0 [place] % (Auto) 7.3 Eos % (Auto) 3.9 Baso % (Auto) 0.4 Neut # (Auto) 4.6 Lymph # (Auto) 1.8 [place] # (Auto) 0.5 Eos # (Auto) 0.3 Baso # (Auto) 0.0 Immature Gran % 0.5 Nucleated RBC % 0.0 Immature Gran # 0.04 Nucleated RBCs # 0.00 Immature Plt Fraction 0.0 Sodium Potassium Chloride Carbon Dioxide Anion Gap BUN Creatinine GFR Calculation BUN/Creatinine Ratio Glucose POC Glucose 321 H 292 H Calculated Osmolality Calcium Magnesium - Imaging and Cardiology Cardiology Procedure: report reviewed by me DS: Provider Consults: 01/12/17 07:39 Consult to Cardiac Rehabilitation [CONS] Routine Reason for Cardiac Rehabilitation: Appt Out Pt Cardiac Rehab Consult Comment: nstemi; stent Expected date of discharge: 01/15/17 <Channing Caballero - Last Filed: 01/15/17 15:56> Diagnosis - Discharge Diagnosis (1) Non-ST elevation [place] (NSTEMI) Status: Resolved (2) Essential hypertension Status: Chronic (3) Diabetes mellitus Status: Chronic IHillary Bonnie E, NP, personally performed the services described in this documentation, ascribed by Joan Buckner RN in my presence, and it is both accurate and complete [id number] .
== END 2017-01-15 15:45 | disposition home or self-care (01) | DRG 174 ==
LOC: EDUNIT# → N.ED 06:04 → N.CL 06:48 → N.CC 08:47 → N.TELEN 01-13 13:59
PROVIDERS: ADMIT Internal Medicine Cardiovascular Disease; ATTEND Internal Medicine Cardiovascular Disease